=== PATIENT | female | born 1950 | race Caucasian/White ===

== ENCOUNTER 2023-02-24 10:38 | Observation (INO) | payer OTHER, MEDICARE ==
[2023-02-24 11:01] VITALS: BMI 67.7
[2023-02-24] MEDS ORDERED: SODIUM CHLORIDE 0.9% 500 ML INFUS.BAG IV ONE ×2 (11:50→14:15)
[2023-02-24] MEDS ORDERED: ONDANSETRON 4 MG/2 ML VIAL IVPUSH ONE ×2 (11:50→14:18)
[2023-02-24] MEDS ORDERED: ACETAMINOPHEN 1000 MG/100 ML BAG IVPB ONE (11:50)
[2023-02-24] MEDS ORDERED: ACETAMINOPHEN INJECTION 100 ML IVPB ONE (11:57)
[2023-02-24] MEDS ORDERED: ONDANSETRON 4 MG/2 ML VIAL ONE ×2 (11:57→14:22)
[2023-02-24 12:29] LABS: BASO % 1.3 % (0-2.0); EOS % 0.4 % (0-4.5); HEMATOCRIT 44.9 % (32.4-45.2); HEMOGLOBIN 15.8 GM/dL (10.7-15.3); LYMPH % 18.3 % (8-40); MCH 28.4 pg (25.7-33.7); MCHC 35.1 g/dl (32.0-36.0); MONO % 12.7 % (3.8-10.2); NEUT % 67.3 % (42.8-82.8); PLATELET COUNT 215 10^3/uL (134-434); RBC 5.54 M/mm3 (3.60-5.2); RDW 14.4 % (11.6-15.6); WHITE BLOOD COUNT 6.8 K/mm3 (4.0-10.0)
[2023-02-24 12:36] LABS: INR 1.05 (0.83-1.09); PROTHROMBIN TIME (PATIENT) 12.2 SEC (9.7-13.0)
[2023-02-24 12:38] LABS: ACTIVATED PTT 30.7 SECONDS (25.2-36.5)
[2023-02-24 12:48] LABS: CHLORIDE 96 mmol/L (98-107); SODIUM 125 mmol/L (136-145)
[2023-02-24 12:50] LABS: CALCIUM 8.9 mg/dL (8.5-10.1)
[2023-02-24 12:51] LABS: ALBUMIN 3.5 g/dl (3.4-5.0); BLOOD UREA NITROGEN 18.2 mg/dL (7-18); CO2 29 mmol/L (21-32); GLUCOSE,RANDOM 97 mg/dL (74-106); LIPASE 217 U/L (73-393); MAGNESIUM 2.4 mg/dL (1.8-2.4)
[2023-02-24 12:54] LABS: CREATININE 1.3 mg/dL (0.55-1.3)
[2023-02-24 12:55] LABS: TOT PROT 8.2 g/dl (6.4-8.2)
[2023-02-24 12:57] LABS: ALK PHOS 61 U/L (45-117)
[2023-02-24 13:07] LABS: ANION GAP 0 MMOL/L (8-16); POTASSIUM > 10.0 mmol/L (3.5-5.1); SGOT/AST 142 U/L (15-37); SGPT/ALT 44 U/L (13-61)
[2023-02-24 14:07] LABS: POTASSIUM 3.9 mmol/L (3.5-5.1)
[2023-02-24 14:09] LABS: CALCIUM 8.2 mg/dL (8.5-10.1)
[2023-02-24 14:10] LABS: BLOOD UREA NITROGEN 17.8 mg/dL (7-18)
[2023-02-24 14:13] LABS: CREATININE 1.2 mg/dL (0.55-1.3)
[2023-02-24] MEDS ORDERED: FAMOTIDINE 20 MG/50 ML IVPB 20 MG/50 ML MG IVPB ONE ×2 (14:18→14:22)
[2023-02-24] MEDS ORDERED: MAG HYDROX/AL HYDROX/SIMETH -MYLANTA- ORAL SUSPENSION PO ONE (14:18)
[2023-02-24] MEDS ORDERED: MAG HYDROX/AL HYDROX/SIMETH 30 ML UNIT-DOSE CUP ONE (14:22)
[2023-02-24] MEDS ORDERED: METOCLOPRAMIDE HCL INJECTION 10 MG/2 ML VIAL ONE (14:31)
[2023-02-24] MEDS ORDERED: KETOROLAC TROMETHAMINE 30 MG/1 ML VIAL ONE (14:32)
[2023-02-24] MEDS: SODIUM CHLORIDE 1,000 ML IV SCH (17:42)
[2023-02-25 08:37] LABS: BASO % 0.8 % (0-2.0); EOS % 1.4 % (0-4.5); HEMATOCRIT 32.7 % (32.4-45.2); HEMOGLOBIN 11.5 GM/dL (10.7-15.3); LYMPH % 29.3 % (8-40); MCH 28.2 pg (25.7-33.7); MEAN CELL VOLUME 80.6 fl (80-96); MEAN PLT VOLUME 8.8 fl (7.5-11.1); MONO % 15.1 % (3.8-10.2); NEUT % 53.4 % (42.8-82.8); PLATELET COUNT 145 10^3/uL (134-434); RBC 4.07 M/mm3 (3.60-5.2); RDW 14.5 % (11.6-15.6); WHITE BLOOD COUNT 3.6 K/mm3 (4.0-10.0)
[2023-02-25 09:01] LABS: POTASSIUM 3.3 mmol/L (3.5-5.1)
[2023-02-25 09:07] LABS: BLOOD UREA NITROGEN 15.2 mg/dL (7-18); CALCIUM 7.6 mg/dL (8.5-10.1); MAGNESIUM 1.9 mg/dL (1.8-2.4)
[2023-02-25 09:10] LABS: CREATININE 0.7 mg/dL (0.55-1.3); PHOSPHOROUS 3.2 mg/dL (2.5-4.9)
[2023-02-25 09:12] LABS: BILIRUBIN,TOTAL 0.3 mg/dL (0.2-1)
[2023-02-25 09:22] LABS: TOT PROT 5.6 g/dl (6.4-8.2)
[2023-02-25] MEDS ORDERED: ACETAMINOPHEN 325 MG TABLET (FP) PO PRN (09:52)
[2023-02-25] MEDS: ATENOLOL 50 MG TABLET (FP) PO SCH ×2 (09:54→10:32)
[2023-02-25] MEDS: ENOXAPARIN NA (PORCINE) 40 MG/0.4 ML DISP.SYRIN SQ SCH ×2 (09:54→10:32)
[2023-02-25] MEDS: HYDROCHLOROTHIAZIDE 25 MG TABLET (FP) PO SCH ×2 (09:54→10:32)
[2023-02-25] MEDS: LACTOBACILLUS ACIDOPHILUS 1 TABLET PO SCH (10:31)
[2023-02-25] MEDS ORDERED: POTASSIUM CHLORIDE TABS 20 MEQ TABLET.ER (FP) PO ONE (13:15)
[2023-02-25] MEDS: DEXAMETHASONE SOD PHOSPHATE 10 MG/1 ML VIAL IVPUSH SCH (16:42)
[2023-02-25] MEDS: SODIUM CHLORIDE 1,000 ML IV SCH (16:42)
[2023-02-25] MEDS ORDERED: ONDANSETRON 4 MG/2 ML VIAL IVPUSH ONE (16:43)
[2023-02-25 18:07] LABS: EPI CELLS 5 /uL (0-25.1); HYALINE CASTS 0 /uL (0-3.1); PH,URINE 5.5 (5.0-8.0); URINE APPEARANCE CLEAR; URINE BACTERIA 7 /uL (0-1359); URINE BILIRUBIN NEGATIVE (NEGATIVE); URINE COLOR YELLOW; URINE GLUCOSE (UA) NEGATIVE (NEGATIVE); URINE KETONE NEGATIVE (NEGATIVE); URINE LEUK ESTERASE NEGATIVE (NEGATIVE); URINE NITRITE NEGATIVE (NEGATIVE); URINE PROTEIN NEGATIVE (NEGATIVE); URINE RBC 16 /uL (0-23.9); URINE UROBILINOGEN 0.2 mg/dL (0.2-1.0); URINE WBC 16 /uL (0-25.8)
[2023-02-26] MEDS: SODIUM CHLORIDE 1,000 ML IV SCH (03:06)
[2023-02-26 09:20] LABS: BASO % 0.2 % (0-2.0); HEMATOCRIT 34.7 % (32.4-45.2); LYMPH % 17.8 % (8-40); MCH 27.9 pg (25.7-33.7); MCHC 34.7 g/dl (32.0-36.0); MEAN CELL VOLUME 80.5 fl (80-96); MEAN PLT VOLUME 8.7 fl (7.5-11.1); MONO % 11.5 % (3.8-10.2); NEUT % 70.5 % (42.8-82.8); PLATELET COUNT 152 10^3/uL (134-434); RBC 4.31 M/mm3 (3.60-5.2); RDW 14.4 % (11.6-15.6); WHITE BLOOD COUNT 4.4 K/mm3 (4.0-10.0)
[2023-02-26 09:38] LABS: POTASSIUM 3.9 mmol/L (3.5-5.1)
[2023-02-26 09:41] LABS: CALCIUM 8.2 mg/dL (8.5-10.1)
[2023-02-26 09:42] LABS: ALBUMIN 3.2 g/dl (3.4-5.0); BLOOD UREA NITROGEN 8.8 mg/dL (7-18); MAGNESIUM 2.1 mg/dL (1.8-2.4)
[2023-02-26 09:45] LABS: CREATININE 0.6 mg/dL (0.55-1.3)
[2023-02-26 09:46] LABS: BILIRUBIN,TOTAL 0.4 mg/dL (0.2-1)
[2023-02-26 09:47] LABS: TOT PROT 6.1 g/dl (6.4-8.2)
[2023-02-26] MEDS ORDERED: MAG HYDROX/AL HYDROX/SIMETH 30 ML UNIT-DOSE CUP PO PRN (12:08)
[2023-02-26] MEDS ORDERED: ACETAMINOPHEN 325 MG TABLET (FP) PO ONE (12:15)
[2023-02-26] MEDS: DEXAMETHASONE SOD PHOSPHATE 10 MG/1 ML VIAL IVPUSH SCH (12:24)
[2023-02-26] MEDS: ENOXAPARIN NA (PORCINE) 40 MG/0.4 ML DISP.SYRIN SQ SCH (12:24)
[2023-02-26] MEDS: LACTOBACILLUS ACIDOPHILUS 1 TABLET PO SCH (12:29)
[2023-02-26] MEDS: HYDROCHLOROTHIAZIDE 25 MG TABLET (FP) PO SCH (12:29)
[2023-02-26] MEDS: ATENOLOL 50 MG TABLET (FP) PO SCH (12:29)
[2023-02-26] MEDS ORDERED: DEXAMETHASONE 4 MG TABLET (FP) PO SCH (12:30)
[2023-02-27 06:36] VITALS: RESP 19
[2023-02-27] MEDS: ATENOLOL 50 MG TABLET (FP) PO SCH (09:46)
[2023-02-27] MEDS: HYDROCHLOROTHIAZIDE 25 MG TABLET (FP) PO SCH (09:46)
[2023-02-27] MEDS: LACTOBACILLUS ACIDOPHILUS 1 TABLET PO SCH (09:46)
[2023-02-27] MEDS: ENOXAPARIN NA (PORCINE) 40 MG/0.4 ML DISP.SYRIN SQ SCH (09:46)
[2023-02-27 09:48] VITALS: BP 128/65; PULSE 83; TEMP 98
[2023-02-27 10:12] LABS: BASO % 0.2 % (0-2.0); EOS % 0.1 % (0-4.5); HEMATOCRIT 34.5 % (32.4-45.2); LYMPH % 17.1 % (8-40); MCH 27.8 pg (25.7-33.7); MCHC 34.7 g/dl (32.0-36.0); MEAN CELL VOLUME 80.2 fl (80-96); MEAN PLT VOLUME 8.9 fl (7.5-11.1); NEUT % 77.6 % (42.8-82.8); PLATELET COUNT 155 10^3/uL (134-434); RBC 4.31 M/mm3 (3.60-5.2); RDW 14.4 % (11.6-15.6); WHITE BLOOD COUNT 8.4 K/mm3 (4.0-10.0)
[2023-02-27 10:22] LABS: POTASSIUM 3.4 mmol/L (3.5-5.1)
[2023-02-27 10:24] LABS: ALBUMIN 2.9 g/dl (3.4-5.0); CALCIUM 8.1 mg/dL (8.5-10.1)
[2023-02-27 10:25] LABS: MAGNESIUM 1.7 mg/dL (1.8-2.4)
[2023-02-27 10:28] LABS: BILIRUBIN,TOTAL 0.6 mg/dL (0.2-1); CREATININE 0.8 mg/dL (0.55-1.3); TOT PROT 5.8 g/dl (6.4-8.2)
== END 2023-02-27 10:13 | disposition home or self-care (01) ==
LOC: JER 10:38 → JERBED 14:43 → J8W 15:52
PROVIDERS: ADMIT Internal Medicine; ATTEND Nurse Practitioner Family
PROC: 3E033NZ Introduction of Analgesics, Hypnotics, Sedatives into Peripheral Vein, Percutaneous Approach (ICD-10-PCS; principal; 2023-02-24)
PROC: 3E033GC Introduction of Other Therapeutic Substance into Peripheral Vein, Percutaneous Approach (ICD-10-PCS; 2023-02-24)
PROC: 3E0337Z Introduction of Electrolytic and Water Balance Substance into Peripheral Vein, Percutaneous Approach (ICD-10-PCS; 2023-02-24)
DX: U07.1 COVID-19 (principal); I48.91 Unspecified atrial fibrillation; R07.89 Other chest pain; F41.8 Other specified anxiety disorders; I48.92 Unspecified atrial flutter; I10 Essential (primary) hypertension; Z95.0 Presence of cardiac pacemaker; E66.8 Other obesity; Z68.32 Body mass index [BMI] 32.0-32.9, adult; Z88.2 Allergy status to sulfonamides; Z91.013 Allergy to seafood
CPT/HCPCS: 0241U-QW; 36415; 71045-TC-FY; 71046-TC-FY; 80048; 80053; 81003; 83690; 83735; 84100; 84484; 85025; 85610; 85730; 86140; 87086; 93005; 93010; 96361; 96365; 96375; 96376; 97116-GP; 99285-25; G0378; J1100

== ENCOUNTER → 2023-07-29 | Day surgery (SDC) | payer OTHER, MEDICARE ==
[2023-07-27 14:31] VITALS: BMI 30.9
[~2023-07-29] MED LIST: ACETAMINOPHEN 500 MG TABLET (FP) PO PRN; LIDOCAINE HCL/PF 1% SDV 5ML VIAL ONE; LIDOCAINE HCL/PF 2% SDV 5ML VIAL INF ONE; LIDOCAINE HCL/PF 2% SDV 5ML VIAL ONE
[2023-07-29 10:51] VITALS: BP 157/74; PULSE 65; RESP 18; TEMP 98.5
== END | disposition home or self-care (01) ==
LOC: JASU-SURG 04:24
PROVIDERS: ATTEND Pain Medicine Pain Medicine
PROC: 015D3ZZ Destruction of Femoral Nerve, Percutaneous Approach (ICD-10-PCS; principal; 2023-07-29 10:00)
DX: M25.562 Pain in left knee (principal)